=== PATIENT | female | born 1975 | race Caucasian/White ===

== ENCOUNTER 2018-01-16 06:05 | Day surgery (SDC) | payer BC ==
[2018-01-15 12:12] LABS: BILIRUBIN,URINE NEGATIVE (NEGATIVE); BLOOD, URINE 1+ (NEGATIVE); CLARITY/URINE CLEAR (CLEAR); COLOR,URINE YELLOW (YELLOW); GLUCOSE,URINE NEGATIVE (NEGATIVE); KETONES,URINE NEGATIVE (NEGATIVE); LEUKOCYTE ESTERASE ,URINE NEGATIVE (NEGATIVE); NITRITE, URINE NEGATIVE (NEGATIVE); PROTEIN URINE TRACE (NEGATIVE); UROBILINOGEN,URINE 0.2 (0.2-1.0)
[2018-01-15 12:30] LABS: BACTERIA,URINE FEW /HPF (None Seen); MUCUS,URINE 1+ /LPF (None Seen); WBC,URINE 0-3 /HPF (0-3)
[2018-01-15 12:51] LABS: BASOPHILS # (AUTO) 0.1 K/uL (0.0-0.2); BASOPHILS % (AUTO) 0.5 % (0.0-2.0); EOSINOPHILS # (AUTO) 0.4 K/uL (0.0-0.4); EOSINOPHILS % (AUTO) 4.1 % (0.0-4.0); HEMATOCRIT 41.7 % (36-48); HEMOGLOBIN 13.6 g/dL (12.0-16.0); LYMPHOCYTES # (AUTO) 2.5 K/uL (1.0-5.5); LYMPHOCYTES % (AUTO) 24.3 % (20.5-51.5); MEAN CORPUSCULAR HEMOGLOBIN 29 pg (27-31); MEAN CORPUSCULAR HGB CONC 33 % (32-36); MEAN CORPUSCULAR VOLUME 88 fL (79.0-98.0); MONOCYTES # (AUTO) 0.7 K/uL (0.0-1.0); MONOCYTES % (AUTO) 6.9 % (1.7-9.3); NEUTROPHILS # (AUTO) 6.4 K/uL (1.8-7.7); NEUTROPHILS % (AUTO) 64.2 % (40.0-70.0); PLATELET COUNT (AUTO) 260 K/uL (130-430); RED BLOOD CELL COUNT(AUTO) 4.76 MIL/uL (4.2-6.2); WHITE BLOOD COUNT (AUTO) 10.1 K/uL (4.8-10.8)
[2018-01-15 13:00] LABS: PROTHROMBIN TIME 10.3 SECS (9.5-12.5)
[2018-01-15 13:11] LABS: ALBUMIN 3.4 g/dL (3.4-4.8); CALCIUM 9.1 mg/dL (8.4-11.0); CREATININE 0.58 mg/dL (0.55-1.30); POTASSIUM 3.5 mmol/L (3.5-5.1); TOTAL BILIRUBIN 0.2 mg/dL (0.0-1.0)
[~2018-01-16] VITALS: Ht 165.1 cm; Wt 112.5 kg
[2018-01-16] MEDS ORDERED: CEFAZOLIN SOD 2 GM in D5W 50 ML IV ONE (07:00)
[2018-01-16] MEDS ORDERED: ROCURONIUM BROMIDE 10 MG/ML (ZEMURON) IV ONE (07:25)
[2018-01-16] MEDS ORDERED: NS 1000 ML BAG IV ONE (07:25)
[2018-01-16] MEDS ORDERED: fentaNYL CITRATE/PF 100 MCG/2 ML AMP IVP ONE (07:25)
[2018-01-16] MEDS ORDERED: KETOROLAC TROMETHAMINE 30 MG VIAL IVP ONE (07:25)
[2018-01-16] MEDS ORDERED: ONDANSETRON HCL 4 MG/2 ML VIAL IVP ONE (07:25)
[2018-01-16] MEDS ORDERED: MIDAZOLAM HCL 5 MG/5 ML VIAL IVP ONE (07:25)
[2018-01-16] MEDS ORDERED: SEVOFLURANE 15 MIN GAS INH ONE (07:25)
[2018-01-16] MEDS ORDERED: PROPOFOL 200MG/ 20ML VIAL (DIPRIVAN) IV ONE (07:25)
[2018-01-16] MEDS ORDERED: LR 1,000 ML IV SCH (08:05)
[2018-01-16] MEDS ORDERED: MORPHINE 4 MG/ML INJ. SYRINGE IVP PRN ×3 (08:15)
[2018-01-16] MEDS ORDERED: METOCLOPRAMIDE HCL 10 MG/2 ML VIAL IVP PRN (08:15)
[2018-01-16] MEDS ORDERED: HYDROcodone/ACETAMIN 5-325 MG TAB (NORCO/ VICODIN) PO PRN ×2 (08:45)
[2018-01-16] MEDS ORDERED: PROMETHAZINE HCL 25 MG/ML AMP IM PRN (08:45)
[2018-01-16] MEDS ORDERED: MORPHINE 4 MG/ML INJ. SYRINGE IVP ONE (08:54)
[2018-01-16] MEDS ORDERED: MORPHINE 4 MG/ML INJ. SYRINGE ONE (08:54)
[2018-01-16 09:55] VITALS: BP_SYST 146
== END 2018-01-16 10:45 | disposition home or self-care (01) ==
LOC: SDS 06:05 → SMU 06:05 → SDS 10:45
PROVIDERS: ATTEND Obstetrics & Gynecology Gynecology
DX: N84.0 Polyp of corpus uteri (principal); L68.0 Hirsutism; Z79.899 Other long term (current) drug therapy; Z90.49 Acquired absence of other specified parts of digestive tract; F17.210 Nicotine dependence, cigarettes, uncomplicated; Z82.49 Family history of ischemic heart disease and other diseases of the circulatory system; Z80.0 Family history of malignant neoplasm of digestive organs; N92.1 Excessive and frequent menstruation with irregular cycle; E55.9 Vitamin D deficiency, unspecified; E66.01 Morbid (severe) obesity due to excess calories; I10 Essential (primary) hypertension
CPT/HCPCS: 36415; 71046-TC; 80053; 81000-TC; 84703; 85025; 85610-TC; 85730-TC; 86886; 86900; 86901; 87086; 88305; 93005; C1819; J0690; J1885; J2250; J2270; J2405; J2704; J3010; J7030; J7060; J7120